=== PATIENT | male | born 1985 | race American Indian/Alaskan Native ===

== ENCOUNTER 2019-05-26 19:07 | Emergency (ER) | payer SELFPAY ==
--- NOTE | 2019-05-26 21:22 | Event Note ---
ED Screening Note Date of service: 05/26/19 Time: 21:20 ED Screening Note: 33 y o male presents to Ed cc of fever, malaise, flank pain vomitting, cant eat This initial assessment/diagnostic orders/clinical plan/treatment(s) is/are subject to change based on patients health status, clinical progression and re- assessment by fellow clinical providers in the ED. Further treatment and workup at subsequent clinical providers discretion. Patient/guardian urged not to elope from the ED as their condition may be serious if not clinically assessed and managed. Initial orders include: ua, cbc, cxr bmp motrin in triage ivf,zofran in triage acc eval
[2019-05-26] MEDS ORDERED: SODIUM CHLORIDE 0.9% 1000 ML 1,000 ML IV ONE ×2 (21:25→23:09)
[2019-05-26] MEDS ORDERED: IBUPROFEN 800 MG TAB PO ONE (21:25)
[2019-05-26] MEDS ORDERED: ONDANSETRON 4 MG ODT TAB PO ONE (21:26)
[2019-05-26] MEDS ORDERED: ONDANSETRON 4 MG/2 ML INJ IV ONE (21:29)
[2019-05-26 22:01] LABS: Hematocrit 36.3 % (35.5-45.6); Hemoglobin 12.7 gm/dl (11.8-15.2); Mean Corpuscular HGB Conc 35 % (32-34); Mean Corpuscular Volume 89 fl (84-94); Platelet Count 195 K/mm3 (140-440); Red Cell Distribution Width 13.6 % (13.2-15.2)
[2019-05-26 22:20] LABS: BUN/Creatinine Ratio 8; Blood Urea Nitrogen 11 mg/dL (9-20); Calcium 8.7 mg/dL (8.4-10.2); Hemolysis Index 4
[2019-05-26 22:35] LABS: Basophils % (Manual) 0 % (0.0-1.8); Eosinophils % (Manual) 0 % (0.0-4.3); RBC Morphology Normal; Total Cells Counted 100
[2019-05-26] MEDS ORDERED: cefTRIAXone/NS 1 GM/50 ML 1 GM/50 ML BAG IV ONE (23:43)
--- NOTE | 2019-05-26 23:54 | XRay Report ---
CHEST 2 VIEWS, 05/26/2019 10:22 PM INDICATION: Fever COMPARISON: None FINDINGS: Support devices: None Heart: The heart is normal in size. Lungs/pleura: There is a 2.4 cm rounded opacity projecting over the right lower lobe. The left lung a ppears clear. No large pleural effusion is visualized. Additional findings: No significant acute abnormality. IMPRESSION: 1. Rounded opacity projects over the right lower lobe. Suggest CT of the chest for better characteriz ation. Signer Name: Zara Knox MD Signed: 05/26/2019 11:49 PM Workstation Name: [id number]
--- NOTE | 2019-05-27 00:22 | Emergency Department Report ---
- General Chief Complaint: Upper Respiratory Infection Stated Complaint: FLU SYM Time Seen by Provider: 05/26/19 23:01 Source: patient Mode of arrival: Ambulatory Limitations: No Limitations - History of Present Illness Initial Comments: 33-year-old -[place] male presents to the emergency room for fever nausea vomiting body aches decreased appetite times today. Patient reports a productive cough 2 weeks. He complains of chest pain with cough and deep breath. Patient last took Aleve at 8 AM. Patient has a past medical history of hypertension and surgical history of spleen removal. Patient currently has no primary care provider has no known drug allergies and currently doesn't take any medications. MD Complaint: fever, cough Onset/Timin -: week(s) (cough), This morning (fever) Severity scale (0 -10): 10 Quality: aching - Related Data Previous Rx's Medication Instructions Recorded Last Taken Type Albuterol INH(or & Nicu Only) 2 puff IH QID PRN 14 Days #8.5 gram 05/27/19 Unknown Rx [ProAir HFA Inhaler] Azithromycin [Zithromax TAB] 250 mg PO QDAY 5 Days #6 tablet 05/27/19 Unknown Rx Allergies Allergy/AdvReac Type Severity Reaction Status Date / Time No Known Allergies Allergy Verified 05/26/19 20:47 ED Review of Systems ROS: Stated complaint: FLU SYM Other details as noted in HPI ED Past Medical Hx - Past Medical History Hx Hypertension: Yes - Surgical History Additional Surgical History: spleen removed - Social History Smoking Status: Never Smoker Substance Use Type: Alcohol - Medications Home Medications: Home Medications Medication Instructions Recorded Confirmed Last Taken Type Albuterol INH(or & Nicu Only) 2 puff IH QID PRN 14 Days #8.5 gram 05/27/19 Unknown Rx [ProAir HFA Inhaler] Azithromycin [Zithromax TAB] 250 mg PO QDAY 5 Days #6 tablet 05/27/19 Unknown Rx ED Physical Exam - General Limitations: No Limitations General appearance: alert - Head Head exam: Present: atraumatic, normocephalic - Eye Eye exam: Present: normal appearance - ENT ENT exam: Present: mucous membranes moist - Neck Neck exam: Present: normal inspection, full ROM - Respiratory Respiratory exam: Present: other (crackles in the right base) - Cardiovascular Cardiovascular Exam: Present: tachycardia - GI/Abdominal GI/Abdominal exam: Present: soft. Absent: distended, tenderness - Back Exam Back exam: Present: normal inspection, full ROM - Neurological Exam Neurological exam: Present: alert, oriented X3, normal gait - Psychiatric Psychiatric exam: Present: normal affect, normal mood - Skin Skin exam: Present: warm, dry, intact, normal color. Absent: rash ED Course Vital Signs 05/26/19 05/27/19 21:21 00:00 Temperature 103 F H 98.5 F Pulse Rate 118 H 99 H Respiratory 18 18 Rate Blood Pressure 152/81 Blood Pressure 118/74 [Left] O2 Sat by Pulse 95 95 Oximetry ED Medical Decision Making - Lab Data Result diagrams: 05/26/19 21:51 05/26/19 21:51 - Radiology Data Radiology results: report reviewed Patient: EVELIN FERRELL MR #: [id number] : 1985 Acct:[id number] Age/Sex: 33 / M ADM Date: 05/26/19 Loc: ED Attending Dr: Ordering Physician: CHRISTIAN CORREA Date of Service: 05/26/19 Procedure(s): XR chest routine 2V Accession Number(s): [id number] cc: CHRISTIAN CORREA Fluoro Time In Minutes: CHEST 2 VIEWS, 05/26/2019 10:22 PM INDICATION: Fever COMPARISON: None FINDINGS: Support devices: None Heart: The heart is normal in size. Lungs/pleura: There is a 2.4 cm rounded opacity projecting over the right lower lobe. The left lung appears clear. No large pleural effusion is visualized. Additional findings: No significant acute abnormality. IMPRESSION: 1. Rounded opacity projects over the right lower lobe. Suggest CT of the chest for better characterization. Signer Name: Zara Knox MD Signed: 05/26/2019 11:49 PM Workstation Name: [id number] Transcribed By: EB Dictated By: Zara Knox MD Electronically Authenticated By: Zara Knox MD Signed Date/Time: 05/26/192348 DD/ 46 TD/TT: - Medical Decision Making 33-year-old -[place] male presents to the emergency room for fever nausea vomiting body aches decreased appetite times today. Patient reports a productive cough 2 weeks. He complains of chest pain with cough and deep breath. Patient last took Aleve at 8 AM. Patient has a past medical history of hypertension and surgical history of spleen removal. Patient currently has no primary care provider has no known drug allergies and currently doesn't take any medications. Patient has been ordered 2 L of normal saline and Zofran, Rocephin 1 g, azithromycin 500 mg IV. Labs have been ordered lactic acid flu has been ordered. Labs are abnormal with a 21.8 thousand WBCs. Patient chest x-rays shows concern for a right lung opacity suggestive of a CT scan. CT has been ordered. Discussed case with Dr. Sullivan. CURB-65 Score for Pneumonia Severity 0 patient is a candidate for outpatient therapy. Critical care attestation.: If time is entered above; I have spent that time in minutes in the direct care of this critically ill patient, excluding procedure time. ED Disposition Clinical Impression: Pneumonia Qualifiers: Pneumonia type: due to unspecified organism Laterality: right Lung location: lower lobe of lung Qualified Code(s): J18.9 - Pneumonia, unspecified organism Disposition: DC-01 TO HOME OR SELFCARE Is pt being admited?: No Does the pt Need Aspirin: No Condition: Stable Instructions: Bacterial Pneumonia (ED) Additional Instructions: Complete antibiotics as prescribed. Use inhaler as needed for cough and shortness of breath. He can take Tylenol or ibuprofen for chest wall pain and fever. Increase her fluid intake. Prescriptions: Albuterol INH(or & Nicu Only) [ProAir HFA Inhaler] 2 puff IH QID PRN 14 Days #8.5 gram PRN Reason: Shortness Of Breath Azithromycin [Zithromax TAB] 250 mg PO QDAY 5 Days #6 tablet Referrals: PRIMARY CARE, [Primary Care Provider] - 3-5 Days Forms: Work/School Release Form(ED), Accompanied Note
[2019-05-27] MEDS ORDERED: AZITHROMYCIN 500 MG in SODIUM CHLORIDE 0.9% 250ML 250 ML IV ONE (01:00)
[2019-05-27 01:56] LABS: Bilirubin,Urine NEG (Negative); Blood,Urine SM (Negative); Color,Urine Colorless (Yellow); Mucus,Urine FEW /HPF; Protein,Urine <15 mg/dL mg/dL (Negative); Urobilinogen,Urine < 2.0 mg/dL (<2.0)
--- NOTE | 2019-05-27 02:54 | Cat Scan Report ---
CT chest w con INDICATION: Cough and fever, opacity of right lung on X-ray. TECHNIQUE: All CT scans at this location are performed using the following dose modulation technique: Automated exposure control. Helical slices were obtained through the chest. 100 cc of Omnipaque 300 is administ ered. COMPARISON: None available. FINDINGS: There is airspace consolidation in the right lower lobe characteristic of pneumonia. This accounts fo r the abnormality seen on the chest radiograph The left lung is clear. The right upper lobe and right middle lobe are clear. There are small mediastinal and right hilar nodes which are likely reactive. There are multiple liver lesions which are indeterminate. These are likely hemangiomas but do appear to have some peripheral enhancement cannot prove that definitively on this exam. These measure up to 2.8 cm. IMPRESSION: 1. There is airspace consolidation in the right lower lobe characteristic of pneumonia. There are multiple hypodense lesions in the liver. Some of these appear to have some peripheral enhan cement and I suspect that these represent multiple hemangiomas however these will need to be further evaluated. Multiphase pre and postcontrast CT scan of the abdomen is recommended. This is nonemergent and can be obtained when the patient can receive an additional dose of contrast. Signer Name: Jose Fischer MD Signed: 05/27/2019 2:49 AM Workstation Name: [id number]
[2019-05-27 17:41] VITALS: BP 118/74
== END 2019-05-27 03:20 | disposition home or self-care (01) ==
LOC: ED 19:07
DX: J18.9 Pneumonia, unspecified organism (principal); R11.2 Nausea with vomiting, unspecified; I10 Essential (primary) hypertension; Z79.899 Other long term (current) drug therapy
CPT/HCPCS: 36415; 71046; 71260; 80048; 81001; 82140; 85007; 85025; 87400; 96361; 96365; 96367; 96375; 99284; J0456; J0696; J2405; J7030; J7050; Q9967